=== PATIENT | male | born 1945 | race Hispanic/Latino ===

== ENCOUNTER 2024-01-31 06:58 | Emergency (ER) | payer MEDICARE ==
[~2024-01-31] VITALS: Ht 167.6 cm; Wt 90.7 kg
[2024-01-31 07:05] VITALS: PULSE 75; RESP 18; TEMP 97.7; O2SAT 96
[2024-01-31] MEDS ORDERED: LIDO-PRILO CAI1 EACH TOP (07:30)
== END 2024-01-31 07:41 | disposition home or self-care (01) ==
LOC: ER 07:06
DX: T83.84XA Pain due to genitourinary prosthetic devices, implants and grafts, initial encounter (principal); N48.89 Other specified disorders of penis; Y84.8 Other medical procedures as the cause of abnormal reaction of the patient, or of later complication, without mention of misadventure at the time of the procedure
CPT/HCPCS: 87086; 87186; 99284